=== PATIENT | male | born 1995 | race African-American/Black ===

== ENCOUNTER 2025-04-07 21:05 | Emergency (ER) | payer MEDICAID, OTHER ==
[~2025-04-07] VITALS: Ht 170.2 cm; Wt 90.7 kg
[2025-04-07 21:15] VITALS: BP 153/83; TEMP 98.9
[2025-04-07] MEDS ORDERED: IBUPROFEN 400 MG TABLET ONE (21:42)
[2025-04-07] MEDS: IBUPROFEN 400 MG TABLET PO ONE (21:46)
[2025-04-07] MEDS ORDERED: ACET-2030 PO (22:59)
[2025-04-07] MEDS ORDERED: KETO10TA2 PO (22:59)
[2025-04-07] MEDS: ACETAMINOPHEN ES 500 MG TABLET PO ONE (23:14)
[2025-04-07] MEDS: LIDOCAINE 5% (PATCH) 1 EA PATCH TP SCH (23:14)
[2025-04-08 02:11] VITALS: O2SAT 98
== END 2025-04-08 02:12 | disposition home or self-care (01) ==
LOC: ER 21:35
DX: S49.92XA Unspecified injury of left shoulder and upper arm, initial encounter (principal); I10 Essential (primary) hypertension; S59.902A Unspecified injury of left elbow, initial encounter; V03.10XA Pedestrian on foot injured in collision with car, pick-up truck or van in traffic accident, initial encounter; Y93.89 Activity, other specified; Y92.410 Unspecified street and highway as the place of occurrence of the external cause; Y99.9 Unspecified external cause status; R03.0 Elevated blood-pressure reading, without diagnosis of hypertension
CPT/HCPCS: 73030-TC; 73060-TC; 73080-TC; 73090-TC; 73110; 73130-TC